=== PATIENT | male | born 1990 | race Caucasian/White ===

== ENCOUNTER 2020-10-18 09:02 | Emergency (ER) | payer OTHER ==
[~2020-10-18] VITALS: Ht 177.8 cm; Wt 74.8 kg
[~2020-10-18 09:02] MED LIST: NORCO 5-325 TA1 EACH PO
[2020-10-18] MEDS ORDERED: BACTRIM DS TAB1 EACH PO (09:51)
[2020-10-18] MEDS ORDERED: CEPHALEXIN500 MG PO (09:51)
[2020-10-18 09:53] VITALS: BP 118/73
== END 2020-10-18 09:54 | disposition home or self-care (01) ==
LOC: M.ERS 09:02
DX: M70.21 Olecranon bursitis, right elbow (principal); Y93.89 Activity, other specified; L03.113 Cellulitis of right upper limb; Z91.041 Radiographic dye allergy status